=== PATIENT | female | born 1975 ===

== ENCOUNTER → 2023-02-08 10:37 | Outpatient (CLI) | payer SELFPAY | PROVIDERS: Visit Provider Nurse Practitioner Family | DX: R30.0 Dysuria (principal) | CPT/HCPCS: 87077; 87086; 87186 ==

== ENCOUNTER 2023-02-20 18:29 | Emergency (ER) | payer SELFPAY ==
[2023-02-20 19:05] VITALS: BP 112/79; PULSE 81; RESP 16; TEMP 36.8; O2SAT 97; BMI 24.5
[2023-02-20 19:26] LABS: Add Manual Diff / Slide Review NO; Basophils Absolute Auto 200 /uL (0-100); Basophils Percent Auto 0.9 % (0-2); Eosinophils Absolute Auto 300 /uL (0-450); Eosinophils Percent Auto 1.3 % (2-4); Hematocrit 37.7 % (36-46); Hemoglobin 13.1 g/dL (12.0-16.0); Lymphocytes Absolute Auto 4300 /uL (1100-4500); Lymphocytes Percent Auto 21.1 % (25-40); Mean Corpuscular HGB Conc 34.7 % (30-36); Mean Corpuscular Volume 83.6 fL (80-100); Monocytes Absolute Auto 1100 /uL (0-900); Monocytes Percent Auto 5.2 % (3-14); Neutrophils Absolute Auto 14500 /uL (1500-7000); Neutrophils Percent Auto 71.5 % (50-75); Platelet Count 480 X10^3/uL (150-400); Red Blood Cell Count 4.51 X10^6/uL (4.0-5.2); Red Cell Distribution Width 14.4 % (11.6-14.8); White Blood Cell Count 20.3 X10^3/uL (4.5-11.0)
[2023-02-20 19:44] LABS: Alanine Aminotransferase 15 IU/L (<35); Albumin 4.3 g/dL (3.5-5.0); Albumin Globulin Ratio 1.2 (1.0-2.8); Alkaline Phosphatase 100 U/L (38-126); Aspartate Aminotransferase 17 IU/L (14-36); BUN Creatinine Ratio 29.6 (6-22); Bilirubin Total 0.3 mg/dL (0.2-1.3); Blood Urea Nitrogen 16 mg/dL (7-17); Calcium 9.5 mg/dL (8.4-10.2); Carbon Dioxide 26 mmol/L (22-32); Chloride 103 mmol/L (98-107); Estimated Glomerular Filt Rate > 60 mL/min (>60); Globulin 3.5 g/dL (1.7-4.1); Glucose 94 mg/dL (70-100); HEMOLYSIS 26 (0-50); Potassium 4.4 mmol/L (3.4-5.1); Sodium 136 mmol/L (137-145); Total Protein 7.8 g/dL (6.3-8.2)
--- NOTE | 2023-02-20 19:57 | ED.FEMALEGU ---
HPI - Female Genitourinary General Chief complaint: Urogenital-Female Stated complaint: kidney infect, UTI T-10 N/F increasing pain Time Seen by Provider: 02/20/23 19:49 Source: patient Mode of arrival: Ambulatory History of Present Illness HPI Narrative: 47-year-old female daily smoker without chronic medical history presents with urinary frequency, urgency and dysuria as well as nausea and flank pain for the past few days. She is had frequent UTIs and states it started the same and she would recently been treated with nitrofurantoin which did little to help her symptoms, she returned to her provider and was encouraged to take a few extra days of nitrofurantoin yet symptoms have worsened. She denies runny nose, sore throat or cough. She denies chest pain or shortness of breath. She denies abdominal pain, constipation or diarrhea. Related Data Previous Rx's Medication Instructions Recorded phenazopyridine 200 mg tablet 200 mg PO TID 6 doses #6 tabs 02/08/23 (Pyridium) ciprofloxacin HCl 500 mg tablet 500 mg PO Q12H #20 tabs 02/21/23 (Cipro) fluconazole 150 mg tablet 150 mg PO Q3D 2 doses #2 tabs 02/21/23 Allergies Allergy/AdvReac Type Severity Reaction Status Date / Time cephalexin Allergy Intermediate Nausea Verified 02/20/23 19:09 Review of Systems Review of Systems Narrative: GENERAL: Denies chills, fatigue, malaise, fever, sweats. HEENT: Denies sinus pain, ear pain, sore throat, difficulty swallowing, dizziness. RESPIRATORY: Denies dyspnea, cough, wheezing, hemoptysis, sputum. CARDIOVASCULAR: Denies chest pain, palpitations, orthopnea, edema, GASTROINTESTINAL: Denies nausea, vomiting, abdominal pain, diarrhea, constipation, melena. : See HPI MUSCULOSKELETAL: denies weakness, joint pain, or bony pain SKIN: Denies rash, skin lesions, or other NEUROLOGIC: Denies weakness, headache, numbness, change in speech, confusion, seizures, incoordination. PSYCHIATRIC: No concerning psychosocial issues. 12 point review of systems is negative except for those stated above Patient History alcohol intake frequency: a few times a month Substance Use Type: marijuana Exam Narrative Exam Narrative: GEN: AOx3 and in mild distress EYES: Pupils are equal, round, and reactive to light and accommodation. Extraoccular muscles are intact bilaterally. There is no subconjunctival hemorrhage or exudate. CHEST: Lungs are clear to auscultation bilaterally and free of wheezes, rales, or rhonchi. Heart rate is regular rhythm, there are no murmurs, clicks, rubs, or gallops. There is no chest wall tenderness. ABD: Abdomen is soft and nontender. There is no guarding or rebound. Bowel sounds are normal in all 4 quadrants. There is no mass or organomegaly. Minor right flank pain EXT: Full painless ROM of all extremities with no loss of sensation or strength. SKIN: Warm, pink, and dry. No erythema or rash Initial Vital Signs Initial Vital Signs: Vital Signs Temperature 98.2 F 02/20/23 19:05 Pulse Rate 81 02/20/23 19:05 Respiratory Rate 16 02/20/23 19:05 Blood Pressure 112/79 02/20/23 19:05 Pulse Oximetry 97 02/20/23 19:05 Oxygen Delivery Method Room Air 02/20/23 19:05 Course Orders Ordered: Discontinued Medications Ciprofloxacin (Ciprofloxacin 250 Mg Tablet) 500 mg PO NOW ONE Stop: 02/21/23 00:31 Last Admin: 02/21/23 00:35 Dose: 500 mg Documented By: KAILASH Ondansetron HCl (Ondansetron 4 Mg Odt) 4 mg PO NOW PRN PRN Reason: Nausea And Vomiting Ondansetron HCl (Ondansetron 4 Mg/2 Ml Inj) 4 mg IV NOW PRN PRN Reason: Nausea And Vomiting Vital Signs Vital signs: Vital Signs - 8 hr 02/21/23 00:41 02/20/23 23:00 02/20/23 23:30 Pulse Rate 63 70 73 Respiratory Rate 18 Blood Pressure 120/62 Pulse Oximetry 97 97 96 Oxygen Delivery Method Room Air 02/21/23 00:00 02/21/23 00:30 Pulse Rate 70 63 Respiratory Rate Blood Pressure Pulse Oximetry 96 97 Oxygen Delivery Method MDM - Female Genitourinary Lab Data 02/20/23 19:15 02/20/23 19:15 Labs: Lab Results 02/20/23 02/20/23 02/20/23 Range/Units 19:15 19:15 19:21 WBC 20.3 H (4.5-11.0) X10^3/uL RBC 4.51 (4.0-5.2) X10^6/uL Hgb 13.1 (12.0-16.0) g/dL Hct 37.7 (36-46) % MCV 83.6 (80-100) fL MCH 29.0 (26-34) PG MCHC 34.7 (30-36) % RDW 14.4 (11.6-14.8) % Plt Count 480 H (150-400) X10^3/uL Neut % (Auto) 71.5 (50-75) % Lymph % (Auto) 21.1 L (25-40) % [place] % (Auto) 5.2 (3-14) % Eos % (Auto) 1.3 L (2-4) % Baso % (Auto) 0.9 (0-2) % Neut # (Auto) 70697 H (2810-3130) /uL Lymph # (Auto) 4300 (6819-9491) /uL [place] # (Auto) 1100 H (0-900) /uL Eos # (Auto) 300 (0-450) /uL Baso # (Auto) 200 H (0-100) /uL Sodium 136 L (137-145) mmol/L Potassium 4.4 (3.4-5.1) mmol/L Chloride 103 (98-107) mmol/L Carbon Dioxide 26 (22-32) mmol/L BUN 16 (7-17) mg/dL Creatinine 0.54 (0.52-1.04) mg/dL Estimated GFR > 60 (>60) mL/min BUN/Creatinine Ratio 29.6 H (6-22) Glucose 94 (70-100) mg/dL Calcium 9.5 (8.4-10.2) mg/dL Total Bilirubin 0.3 (0.2-1.3) mg/dL AST 17 (14-36) IU/L ALT 15 (<35) IU/L Alkaline Phosphatase 100 (38-126) U/L Total Protein 7.8 (6.3-8.2) g/dL Albumin 4.3 (3.5-5.0) g/dL Globulin 3.5 (1.7-4.1) g/dL Albumin/Globulin Ratio 1.2 (1.0-2.8) Urine RBC None seen (0-5/HPF) Urine WBC 1-5/hpf (0-5/HPF) Ur Squamous Epith Cells 1-5 /hpf (0-5/HPF) Urine Bacteria Occasional (0-1) (None) Point of Care Testing Test Results Negative Urine Dip Bedside Urine Glucose Negative Bedside Urine Bilirubin - Negative Bedside Urine Ketone - Negative Urine Specific [place] 1.020 Bedside Urine Occult Blood - Negative Bedside Urine pH 6 Bedside Urine Protein - Negative Bedside Urine Urobilinogen - Negative Bedside Urine Nitrite - Negative Bedside Urine Leukocytes +/- 15 Esterase MDM Narrative Medical decision making narrative: [47] year old patient presents with urinary complaints including right flank pain Multiple etiologies for patient's symptoms considered including, but not limited to: [Cystitis versus pyelonephritis versus kidney stone versus other] Prior Charts reviewed in our EMR Primary Historian: patient Labs reviewed and interpreted by myself: Leukocytosis without significant shift, electrolytes and renal function within normal limits, urine notes leukocyte esterase Patient's symptoms improved over duration of stay with above-stated therapies. Findings and discharge diagnosis discussed with patient/family followed by verbalization of understanding Return precautions discussed with patient/family whom verbalize understanding of diagnosis and plan Discharge Plan Departure Patient Disposition: Home Clinical Impression: Pyelonephritis Instructions: DI for Kidney Infection Activity Restrictions/Additional Instructions: *You have been diagnosed with [kidney infection] *What to do: *Please continue to take your regular medications as directed. [ x] New medication prescriptions sent to your pharmacy: [[facility]] [ ] New medication written as a paper prescription [ ] No new medications given *Please follow up with your primary care provider in 2-3 days, call for an appointment. Let them know you were seen in the Emergency Department and that we ask that you be seen in follow up. We will electronically transmit a record of today's note if your PCP is in our system *Return to Emergency Department if you should have any new, worsening or concerning symptoms, such as [fever greater than 101 F, shaking chills, worsening pain, persistent vomiting or other bothersome symptoms] Prescriptions: New ciprofloxacin HCl [Cipro] 500 mg tablet 500 mg PO Q12H Qty: 20 0RF fluconazole 150 mg tablet 150 mg PO Q3D Qty: 2 0RF Rx Instructions: may repeat second dose 72 hrs after first dose if symptoms persist No Action phenazopyridine [Pyridium] 200 mg tablet 200 mg PO TID 0 Days Qty: 6 0RF Referrals: Miscellaneous,DoctorMD [Primary Care Provider] - Stand Alone Forms: Patient Portal/API
[2023-02-20 20:04] LABS: Bacteria Urine Occasional (0-1); RBC Urine None Seen (0-5/HPF); Squamous Epithelial Cell Urine 1-5 /HPF (0-5/HPF); WBC Urine 1-5/HPF (0-5/HPF)
[2023-02-20 22:30] VITALS: BP 123/61; PULSE 67; O2SAT 98
[2023-02-20 22:33] VITALS: BP 123/61; PULSE 65; TEMP 36.6; O2SAT 98
[2023-02-20 23:00] VITALS: PULSE 70; O2SAT 97
[2023-02-20 23:30] VITALS: PULSE 73; O2SAT 96
[2023-02-21] VITALS: PULSE 70; O2SAT 96
[2023-02-21 00:30] VITALS: PULSE 63; O2SAT 97
[2023-02-21] MEDS: CIPROFLOXACIN 250 MG TABLET 500 MG PO (00:35)
[2023-02-21 00:41] VITALS: BP 120/62; PULSE 63; RESP 18; O2SAT 97
== END 2023-02-21 00:43 | disposition home or self-care (01) ==
PROVIDERS: Emergency Provider Emergency Medicine
DX: N12 Tubulo-interstitial nephritis, not specified as acute or chronic (principal)
CPT/HCPCS: 36415; 80053; 81003; 81015; 81025; 85025; 87086; 99283; 99284